=== PATIENT | male | born 1990 | race Caucasian/White ===

== ENCOUNTER 2018-11-13 09:23 | Emergency (ER) | payer BC ==
[2018-11-13 10:04] VITALS: BP 157/88
--- NOTE | 2018-11-13 10:22 | EDM.PDOC ---
ED HPI GENERAL MEDICAL PROBLEM - General Chief Complaint: Back Pain or Injury Stated Complaint: BACK PAIN Time Seen by Provider: 11/13/18 10:15 Source of Information: Reports: Patient History Limitations: Reports: No Limitations - History of Present Illness INITIAL COMMENTS - FREE TEXT/NARRATIVE: HISTORY AND PHYSICAL: History of present illness: Patient is a 28-year-old male who presents to the emergency room with complaints of low lumbar back pain. He has chronically had low back pain for approximately 6 years does intermittently have a flare up once or twice per year. He states he usually sees And receives Toradol injection and prescription for Flexeril and hydrocodone. He states he tried to call yesterday to set up an appointment but was unable to get in to the clinic in a timely manner. He denies any injury, trauma or falls. He states the pain is in the lumbar back radiates down both glutes and posterior thigh. Increased pain with bending at the hip and twisting side to side. He denies any numbness or tingling to his distal extremities. Denies any urinary or fecal incontinence. Review of systems: As per history of present illness and below otherwise all systems reviewed and negative. Past medical history: As per history of present illness and as reviewed below otherwise noncontributory. Surgical history: As per history of present illness and as reviewed below otherwise noncontributory. Social history: See social history for further information Family history: As per history of present illness and as reviewed below otherwise noncontributory. Physical exam: General: Well-developed and well-nourished 28-year-old male. Alert and oriented. Nontoxic appearing and in no acute distress. HEENT: Atraumatic, normocephalic, pupils equal and reactive bilaterally, negative for conjunctival pallor or scleral icterus, mucous membranes moist, TMs normal bilaterally, throat clear, neck supple, nontender, trachea midline. No drooling or trismus noted. No meningeal signs. No hot potato voice noted. Lungs: Clear to auscultation, breath sounds equal bilaterally, chest nontender. Heart: S1S2, regular rate and rhythm without overt murmur Abdomen: Soft, nondistended, nontender. Negative for masses or hepatosplenomegaly. Negative for costovertebral tenderness. Pelvis: Stable nontender. Genitourinary: Deferred. Rectal: Deferred. Skin: Intact, warm, dry. No lesions or rashes noted. C-spine/Back: No pinpoint vertebral tenderness upon palpation. No crepitus, step -offs or obvious deformities. Patient is ambulatory into the emergency room without difficulty or deficits. He denies any urinary or fecal incontinence. Denies any numbness or tingling to his distal extremities. Extremities: Atraumatic, negative for cords or calf pain. Neurovascular unremarkable. Neuro: Awake, alert, oriented. Cranial nerves II through XII unremarkable. Cerebellum unremarkable. Motor and sensory unremarkable throughout. Exam nonfocal. Notes: Patient did have a lumbar spine x-ray in 2014 which showed no acute findings. He states the pain has been chronic for 6 years and has no new injury, trauma or falls which would indicate he needs repeat x-ray. I did offer him an x-ray today which she declines. Supportive care measures were reviewed and discussed. Voices understanding and is agreeable to plan of care. Denies any further questions or concerns at this time. Diagnostics: Declines Therapeutics: Toradol IM, Norflex IM Prescription: Diclofenac, Flexeril and [place] Impression: Acute on chronic lumbar back pain Plan: 1. Gentle stretching and activity. Rest on a flat firm surface. 2. Tylenol as needed for pain management. Diclofenac and Flexeril as directed. Do not take any additional NSAID such as ibuprofen or Aleve while taking diclofenac, please take with food. Flexeril may cause drowsiness a do not take it will driving her needing to be functioning outside of the house. Please do not take the Flexeril and [place] at the same time; as we discussed. 3. Please see her primary care provider in the next 1-2 days. Return to the ED as needed and as discussed. Definitive disposition and diagnosis as appropriate pending reevaluation and review of above. mid lower back Pain Score (Numeric/FACES): 10 - Related Data Allergies Allergy/AdvReac Type Severity Reaction Status Date / Time cefaclor [From [facility]] Allergy Anaphylactic Verified 11/13/18 10:04 Shock latex Allergy Hives Verified 11/13/18 10:04 Home Meds: Home Meds Acetaminophen/HYDROcodone [White [place]mon 325-5 MG] 1 dose PO Q4H PRN #15 tablet [Rx] Cyclobenzaprine [Flexeril] 10 mg PO TID PRN #20 tab 11/13/18 [Rx] Diclofenac Sodium [Voltaren] 75 mg PO BIDMEALS PRN #30 tab.cr 11/13/18 [Rx] Past Medical History - Past Health History Medical/Surgical History: Denies Medical/Surgical History Musculoskeletal History: Reports: Back Pain, Chronic - Infectious Disease History Infectious Disease History: Reports: None - Past Surgical History Musculoskeletal Surgical History: Reports: None Social & Family History - Family History Family Medical History: Noncontributory - Tobacco Use Smoking Status *Q: Current Every Day Smoker Years of Tobacco use: 4 Packs/Tins Daily: 0.5 - Caffeine Use Caffeine Use: Reports: Soda - Recreational Drug Use Recreational Drug Use: No ED ROS GENERAL - Review of Systems Review Of Systems: ROS reveals no pertinent complaints other than HPI. ED EXAM,LOWER BACK PAIN/INJURY - Physical Exam Exam: See Below (See dictation) Course - Vital Signs Last Recorded V/S: Last Vital Signs Temp 96.8 F 11/13/18 10:01 Pulse 92 11/13/18 10:01 Resp 18 11/13/18 10:01 BP 157/88 H 11/13/18 10:01 Pulse Ox 96 11/13/18 10:01 - Orders/Labs/Meds Meds: Medications Discontinued Medications Generic Name Dose Route Start Last Admin Trade Name Mary Beth PRN Reason Stop Dose Admin Ketorolac Tromethamine 60 mg 11/13/18 10:26 11/13/18 10:36 Toradol IM 11/13/18 10:27 60 mg ONETIME ONE Administration Orphenadrine Citrate 60 mg 11/13/18 10:26 11/13/18 10:36 Norflex IM 11/13/18 10:27 60 mg NOW STA Administration Departure - Departure Time of Disposition: 10:41 Disposition: Home, Self-Care 01 Clinical Impression: Lumbar back pain - Discharge Information Prescriptions: Acetaminophen/HYDROcodone [[place] 325-5 MG] 1 dose PO Q4H PRN #15 tablet PRN Reason: Pain (Severe 7-10) Cyclobenzaprine [Flexeril] 10 mg PO TID PRN #20 tab PRN Reason: Muscle Spasm Diclofenac Sodium [Voltaren] 75 mg PO BIDMEALS PRN #30 tab.cr PRN Reason: Pain Referrals: PCP,Unknown [Primary Care Provider] - Forms: ED Department Discharge Additional Instructions: The following information is given to patients seen in the emergency department who are being discharged to home. This information is to outline your options for follow-up care. We provide all patients seen in our emergency department with a follow-up referral. The need for follow-up, as well as the timing and circumstances, are variable depending upon the specifics of your emergency department visit. If you don't have a primary care physician on staff, we will provide you with a referral. We always advise you to contact your personal physician following an emergency department visit to inform them of the circumstance of the visit and for follow-up with them and/or the need for any referrals to a consulting specialist. The emergency department will also refer you to a specialist when appropriate. This referral assures that you have the opportunity for follow-up care with a specialist. All of these measure are taken in an effort to provide you with optimal care, which includes your follow-up. Under all circumstances we always encourage you to contact your private physician who remains a resource for coordinating your care. When calling for follow-up care, please make the office aware that this follow-up is from your recent emergency room visit. If for any reason you are refused follow-up, please contact the Emergency Department at and asked to speak to the emergency department charge nurse. Primary Care [address] [place] [id number] [place] [address] 1. Gentle stretching and activity. Rest on a flat firm surface. 2. Tylenol as needed for pain management. Diclofenac and Flexeril as directed. Do not take any additional NSAID such as ibuprofen or Aleve while taking diclofenac, please take with food. Flexeril may cause drowsiness a do not take it will driving her needing to be functioning outside of the house. Please do not take the Flexeril and [place] at the same time; as we discussed. 3. Please see her primary care provider in the next 1-2 days. Return to the ED as needed and as discussed.
[2018-11-13] MEDS ORDERED: Ketorolac 60 MG/2 ML SDV IM ONE (10:26)
== END 2018-11-13 11:10 | disposition home or self-care (01) ==
LOC: MW.ED 09:23
DX: G89.29 Other chronic pain (principal); M54.5 Low back pain; F17.210 Nicotine dependence, cigarettes, uncomplicated; Z91.040 Latex allergy status; Z88.8 Allergy status to other drugs, medicaments and biological substances
CPT/HCPCS: 96372; 99283; J1885; J2360

== ENCOUNTER 2019-08-06 11:56 | Day surgery (SDC) | payer BC ==
--- NOTE | 2019-08-06 22:21 | OR ---
SURGEON: Ana Luisa García D.O. DATE OF PROCEDURE: 08/06/2019 PRIMARY SURGEON: Ana Luisa García D.O. WATER PUMP SERVICER: OR staff present: 1. RT Abhi. 2. Olive Rehman RN. 3. Gely Barnes RN. WOUND CLASS: I. PREOPERATIVE DIAGNOSES: 1. Lumbar facet arthropathy. 2. Lumbar degenerative disk disease. 3. Increased BMI. 4. Chronic low back pain. POSTOPERATIVE DIAGNOSES: 1. Lumbar facet arthropathy. 2. Lumbar degenerative disk disease. 3. Increased BMI. 4. Chronic low back pain. PROCEDURES PERFORMED: 1. Right L3, L4, L5 medial branch blocks. 2. Fluoroscopic guidance for needle placement. 3. Local with oral Valium for sedation. SCREENING QUESTIONS: The patient answered "No" to all the following questions: 1. Are you allergic to iodine, Betadine or latex? 2. Do you have a bleeding disorder? 3. Are you on anti-inflammatories or blood thinners? 4. Do you have any current local or systemic infections? DESCRIPTION OF PROCEDURE: The patient had the procedure thoroughly explained including risks, benefits and alternatives. Consent was signed in my clinic indicating understanding and willingness to proceed. The patient presented to [facility] and was escorted to the dressing room to disrobe and change into a hospital gown. Preoperative history and screening were performed by my nurse. Vital signs were taken and stable. The patient reported that Valium 10 milligrams was taken prior to the procedure. The patient was brought back to the procedure room and placed in the prone position on the procedure room table. A pillow was placed under the abdomen in order to flatten the lumbar lordosis. The back was prepped with ChloraPrep and sterilely draped. All personnel in the procedure room were dressed in appropriate attire including surgical scrubs, head and shoe covers. This was to ensure sterility while in the treatment room. During the time fluoroscopy was in use all personnel in the operating room wore lead kimball with thyroid collars. Sterile technique was used during the procedure. The fluoroscope was positioned to provide a right oblique view. Then the right L3 medial branch block was begun by anesthetizing the skin and soft tissues with 2 cubic centimeters of 2% Preservative-Free Lidocaine with a 25-gauge 1.5 inch needle. There were no signs of infection at the site of needle skin insertions. Using fluoroscopic guidance a sterile 22-gauge 3.5 inch spinal needle was positioned at the junction of the transverse process with the superior articular process of the L4 vertebral body. Precise needle placement was confirmed by fluoroscopy and 0.2 cubic centimeters of IsoVue-200 contrast dye which was injected through microbore tubing under live fluoroscopy and showed no intravascular flow pattern and adequate flow over the target L3 medial branch. Then 0.5 cubic centimeters of 0.5% Ropivacaine Preservative-Free was injected slowly without complications after negative aspiration. Then the fluoroscope was positioned to provide a right oblique view for the right L4 medial branch. This was begun by anesthetizing the skin and soft tissues. The fluoroscope was positioned and a sterile 22-gauge 3.5 inch needle was placed at the junction of the transverse process in the superior articular process of the L5 vertebral body. Precise needle placement was confirmed by fluoroscopy. Then 0.2 cubic centimeters of IsoVue-200 contrast dye was injected through microbore tubing under live fluoroscopy and showed no intravascular flow pattern and adequate flow over the target medial branch. After negative aspiration, 0.5 cubic centimeters of 0.5% Ropivacaine was injected without complications. The fluoroscope was then positioned to provide a right L5 dorsal ramus block. This was begun by anesthetizing the skin and soft tissues over the right sacral sulcus. Then using fluoroscopic guidance, a sterile 22-gauge 3.5 inch spinal needle was positioned at the right sacral ala. Precise needle placement was confirmed by fluoroscopy in AP and oblique views, and 0.2 cubic centimeters of IsoVue-200 contrast dye was injected through microbore tubing under live fluoroscopy and showed no intravascular flow pattern and adequate flow over the target nerves. After negative aspiration, 0.5 cubic centimeters of 0.5% Ropivacaine was injected. No complications were noted. The procedure was well tolerated and vital signs were stable during and after the procedure. The staff escorted the patient to the recovery area. The patient was given both oral and written discharge and followup instructions. The patient will follow up with a pain diary which will be evaluated over this evening doing things that would normally cause pain. We will evaluate the efficacy of the diagnostic lumbar medial branch blocks as the patient will follow up in the clinic the next day. The patient was given both oral and written discharge and followup instructions. The patient voiced understanding including understanding of those signs and symptoms that would require emergency care and knows how to contact the office if there are any questions or concerns in the meantime. PREOPERATIVE PAIN: 03/20. POSTOPERATIVE PAIN: 02/18. FOLLOWUP: Follow up in the Pain Clinic with pain diary in the morning. SHEILA / BRIGID /[id number]
== END 2019-08-06 14:35 | disposition home or self-care (01) ==
LOC: MW.SDS 11:56
PROVIDERS: ATTEND Anesthesiology
DX: G89.29 Other chronic pain (principal); M47.816 Spondylosis without myelopathy or radiculopathy, lumbar region; M51.36 Other intervertebral disc degeneration, lumbar region
CPT/HCPCS: 64450; 64493; 64494

== ENCOUNTER 2022-04-09 00:24 | Emergency (ER) | payer BC, OTHER ==
[2022-04-09] MEDS ORDERED: Ondansetron 4 MG/2 ML SDV IVPUSH ONE (00:56)
[2022-04-09] MEDS ORDERED: Sodium Chloride 0.9% 1,000 ML IV ONE (00:56)
[2022-04-09] MEDS ORDERED: Morphine 4 MG/ML VIAL IVPUSH ONE ×2 (00:56→03:17)
[2022-04-09 02:25] LABS: CARBON DIOXIDE,CO2 21.4 mmol/L (21.0-32.0); POTASSIUM,K 3.5 mmol/L (3.5-5.1)
[2022-04-09] MEDS ORDERED: Iopamidol 755 MG/ML 500 ML Multipack Bottle IVPUSH ONE (03:43)
[2022-04-09] MEDS ORDERED: metroNIDAZOLE 250 MG Tab PO ONE (04:35)
[2022-04-09] MEDS ORDERED: Levofloxacin 750 MG Tab PO STA (04:35)
[2022-04-09] MEDS ORDERED: HYDROmorphone 2 MG/ML Syringe IVPUSH ONE (04:36)
[2022-04-09 05:23] VITALS: BP 123/74; PULSE 78
== END 2022-04-09 05:23 | disposition home or self-care (01) ==
LOC: MW.ED 00:24
DX: K63.89 Other specified diseases of intestine (principal); Z91.040 Latex allergy status; Z88.1 Allergy status to other antibiotic agents; Z20.822 Contact with and (suspected) exposure to COVID-19
CPT/HCPCS: 36415; 71045; 74177; 80053; 81003; 83690; 85025; 87635; 96361; 96374; 96375; 96376; 99284; A9270; J1170; J2270; J2405; J7030; Q9967; U0002

== ENCOUNTER 2022-10-05 16:56 | Observation (INO) | payer OTHER ==
[2022-10-05] MEDS ORDERED: Ketorolac 30 MG/ML SDV IVPUSH ONE (18:15)
[2022-10-05] MEDS ORDERED: Sodium Chloride 0.9% 1,000 ML IV ONE (18:15)
[2022-10-05] MEDS ORDERED: Morphine 4 MG/ML Syringe IVPUSH ONE ×2 (18:22→21:11)
[2022-10-05] MEDS ORDERED: Ondansetron 4 MG/2 ML SDV IVPUSH ONE (18:22)
[2022-10-05 19:07] LABS: CARBON DIOXIDE,CO2 27.6 mmol/L (21.0-32.0); POTASSIUM,K 3.6 mmol/L (3.5-5.1)
[2022-10-05 19:09] LABS: CORONAVIRUS COVID-19 NAA NEGATIVE (NEGATIVE); INFLUENZA A NAA NEGATIVE (NEGATIVE); INFLUENZA B NAA NEGATIVE (NEGATIVE)
[2022-10-05] MEDS ORDERED: Iopamidol 755 MG/ML 500 ML Multipack Bottle IVPUSH STA (20:29)
[2022-10-05] MEDS ORDERED: Sodium Chloride 0.9% 1,000 ML IV SCH (21:45)
[2022-10-05] MEDS ORDERED: METRONIDAZOLE IV ONE (22:10)
[2022-10-05] MEDS ORDERED: NORMAL SALINE IV ONE (22:10)
[2022-10-05] MEDS ORDERED: Lactated Ringers 1,000 ML IV SCH (22:30)
[2022-10-05] MEDS: Morphine 2 MG/ML SYRINGE IVPUSH PRN (23:18)
[2022-10-06] MEDS: HYDROmorphone 1 MG/ML Syringe IVPUSH PRN ×9 (01:02→23:23)
[2022-10-06] MEDS: metroNIDAZOLE/Normal Saline 500 MG in Premix Bag 1 BAG IV SCH ×4 (04:41→21:24)
[2022-10-06] MEDS: Morphine 2 MG/ML SYRINGE IVPUSH PRN (07:47)
[2022-10-06] MEDS ORDERED: Ondansetron 4 MG/2 ML SDV IVPUSH ONE (09:11)
[2022-10-06] MEDS ORDERED: Morphine 2 MG/ML SYRINGE IVPUSH PRN ×2 (10:11→13:25)
[2022-10-06] MEDS ORDERED: Naloxone 0.4 MG/ML SDV IVPUSH PRN (10:11)
[2022-10-06] MEDS ORDERED: Albuterol 0.083% 2.5 MG/3 ML Neb Soln NEB PRN (10:11)
[2022-10-06] MEDS ORDERED: Metoclopramide 10 MG/2 ML SDV IVPUSH PRN (10:11)
[2022-10-06] MEDS ORDERED: fentaNYL 50 MCG/ML SDV IVPUSH PRN (10:11)
[2022-10-06] MEDS ORDERED: Ondansetron 4 MG/2 ML SDV IVPUSH PRN ×2 (10:11→13:24)
[2022-10-06] MEDS ORDERED: Bupivacaine 0.5% 30 ML SDV ONE (11:25)
[2022-10-06] MEDS ORDERED: Sugammadex Sodium 200 MG/2 ML VIAL ONE (11:28)
[2022-10-06] MEDS ORDERED: Ketorolac 30 MG/ML SDV ONE (11:28)
[2022-10-06] MEDS ORDERED: Propofol 200 MG/20 ML SDV ONE (11:28)
[2022-10-06] MEDS ORDERED: fentaNYL 100 MCG/2 ML SDV ONE (11:28)
[2022-10-06] MEDS ORDERED: Lidocaine 2% 5 ML SDV ONE (11:28)
[2022-10-06] MEDS ORDERED: Ondansetron 4 MG/2 ML SDV ONE (11:28)
[2022-10-06] MEDS ORDERED: Rocuronium 100 MG/10 ML MDV ONE (11:28)
[2022-10-06] MEDS ORDERED: Dexamethasone 4 MG/ML 5 ML MDV ONE (11:28)
[2022-10-06] MEDS ORDERED: Bupivacaine 0.25% 30 ML SDV ONE (11:38)
[2022-10-06] MEDS ORDERED: Ropivacaine 0.5% 5 MG/ML 30 ML SDV ONE (11:38)
[2022-10-06] MEDS ORDERED: Lactated Ringers 1,000 ML IV SCH (13:30)
[2022-10-06] MEDS ORDERED: Acetaminophen 1,000 MG in Premix Bag 1 BAG IV ONE (13:49)
[2022-10-06] MEDS ORDERED: Midazolam 1 MG/ML 2 ML SDV ONE (13:58)
[2022-10-06] MEDS: Midazolam 1 MG/ML 2 ML SDV IVPUSH PRN ×2 (14:02→14:17)
[2022-10-06] MEDS ORDERED: metroNIDAZOLE/Normal Saline 500 MG in Premix Bag 1 BAG IV SCH (18:00)
[2022-10-06] MEDS: Acetaminophen/HYDROcodone 325-5 MG Tab PO PRN (18:55)
[2022-10-06] MEDS ORDERED: Sertraline 50 MG Tab PO SCH (21:00)
[2022-10-07] MEDS: metroNIDAZOLE/Normal Saline 500 MG in Premix Bag 1 BAG IV SCH (03:55)
[2022-10-07] MEDS: Acetaminophen/HYDROcodone 325-5 MG Tab PO PRN ×2 (04:07→08:26)
[2022-10-07 08:18] VITALS: BP 137/79; PULSE 81
== END 2022-10-07 10:05 | disposition home or self-care (01) ==
LOC: MW.ED 16:56 → MW.MS 21:46
PROVIDERS: ADMIT Surgery; ATTEND Surgery
DX: K35.33 Acute appendicitis with perforation, localized peritonitis, and gangrene, with abscess (principal); F90.9 Attention-deficit hyperactivity disorder, unspecified type; G89.29 Other chronic pain; M54.9 Dorsalgia, unspecified; Z88.1 Allergy status to other antibiotic agents; Z79.899 Other long term (current) drug therapy; Z91.040 Latex allergy status; Z20.822 Contact with and (suspected) exposure to COVID-19; Z87.891 Personal history of nicotine dependence
CPT/HCPCS: 0240U; 36415; 44970; 74177; 80053; 81003; 83690; 85025; 96361; 96365; 96375; 96376; 99285; A9270; G0378; J0131; J1100; J1170; J1885; J2250; J2270; J2405; J2704; J2795; J3010; J3490; J7030; J7120; Q9967; 00840; 64488; 96374; 99284